=== PATIENT | male | born 1950 | race African-American/Black ===

== ENCOUNTER 2016-09-12 21:01 | Emergency (ER) | payer OTHER ==
--- NOTE | 2016-09-12 22:19 | ER Document Report ---
ED General - General Information source: Patient TRAVEL OUTSIDE OF THE [place] IN LAST 30 DAYS: No - HPI Patient complains to provider of: Hypertension Onset: This morning Onset/Duration: Gradual Associated symptoms: Headache, Leg swelling - Bilateral ankles and feet. denies : Chest pain, Shortness of breath <ZOHRA POP - Last Filed: 09/12/16 22:08> <GARETH REID - Last Filed: 09/13/16 03:04> - General Chief Complaint: High Blood Pressure Stated Complaint: BLOOD PRESSURE PROBLEM Time Seen by Provider: 09/12/16 22:07 Notes: Patient is a 65-year-old male, with history of hypertension, presenting to the emergency department concerned that his blood pressure is unstable. Patient reports having a mild headache, swelling in his ankles bilaterally, and " feeling uncomfortable". Patient denies any shortness of breath or chest pain. Patient states he is here visiting from [place], and drove 8 hours on , September 08, 2016. Patient reports having blood pressures of approximately 130/80 at baseline. Patient denies taking any diuretics, but he did recently have this CT of his chest to look for coronary artery calcifications. Patient states that he was told he has aortic regurgitation by his physician in [place] as well. (ZOHRA POP) - Related Data Allergies/Adverse Reactions: No Known Allergies Allergy (Unverified 09/12/16 21:16) Past Medical History - General Information source: Patient - Social History Smoking Status: Never Smoker Cigarette use (# per day): No Lives with: Spouse/Significant other Family History: Reviewed & Not Pertinent Patient has suicidal ideation: No Patient has homicidal ideation: No - Past Medical History Cardiac Medical History: Reports: Hx Hypertension, Other - Aortic regurgitation Renal/ Medical History: Denies: Hx Peritoneal Dialysis Past Surgical History: Reports: Other - Laparoscopic polyp removal 2014, prostatectomy 2001 <ZOHRA POP - Last Filed: 09/12/16 22:08> Review of Systems - Review of Systems Constitutional: See HPI, Other - Feels "uncomfortable" EENT: No symptoms reported Cardiovascular: No symptoms reported. denies: Chest pain Respiratory: No symptoms reported. denies: Short of breath Gastrointestinal: No symptoms reported Genitourinary: No symptoms reported Male Genitourinary: No symptoms reported Musculoskeletal: See HPI, Ankle swelling - Bilateral Skin: No symptoms reported Hematologic/Lymphatic: No symptoms reported Neurological/Psychological: See HPI, Headaches -: Yes All other systems reviewed and negative <ZOHRA POP - Last Filed: 09/12/16 22:08> Physical Exam - General General appearance: Appears well, Alert In distress: None - HEENT Head: Normocephalic, Atraumatic Eyes: Normal Pupils: PERRL -: right: Teardrop pupil Neck: No: Carotid bruit - Respiratory Respiratory status: No respiratory distress Chest status: Nontender Breath sounds: Normal Chest palpation: Normal - Cardiovascular Rhythm: Regular Heart sounds: S1 appreciated Murmur: No - Abdominal Inspection: Normal Tenderness: Nontender - Back Back: Normal, Nontender - Extremities General upper extremity: Normal inspection, Nontender General lower extremity: Edema - Trace peripheral edema bilaterally - Neurological Neuro grossly intact: Yes Cognition: Normal Orientation: AAOx4 [place] Coma Scale Eye Opening: Spontaneous [place] Coma Scale Verbal: Oriented [place]ri Coma Scale Motor: Obeys Commands [place] Coma Scale Total: 15 Speech: Normal - Psychological Associated symptoms: Normal affect, Normal mood - Skin Skin Temperature: Warm Skin Moisture: Dry Skin Color: Normal <ZOHRA POP - Last Filed: 09/12/16 22:08> Course <KIESHAZOHRA - Last Filed: 09/12/16 22:08> - Laboratory Result Diagrams: 09/12/16 22:50 09/12/16 22:50 - Diagnostic Test Radiology reviewed: Image reviewed, Reports reviewed - Chest x-ray is unremarkable. Head CT is unremarkable and shows only normal age-related calcifications in the extra-axial vessels. - EKG Interpretation by Me EKG shows normal: Sinus rhythm, [place], Intervals, QRS Complexes, ST-T Waves Rate: Normal - 66 Rhythm: NSR <GARETH REID - Last Filed: 09/13/16 03:04> - Re-evaluation Re-evalutation: 09/13/16 03:00 The patient states the pressure sensation in his head is improved some with his blood pressure coming down. His blood pressure is 155/96 with a pulse of 65 at this time. His CBC and Chem-12 are unremarkable. His cardiac enzymes are unremarkable. His EKG is completely normal. He will be given a dose of clonidine 0.1 mg, and go home and go to bed. He is to check his blood pressure in the mornings before he takes his blood pressure medications. He is planning on returning to [place] tomorrow but may stay another day depending on how he feels tomorrow. (GARETH REID) - Vital Signs Vital signs: Temp Pulse Resp BP Pulse Ox 98.1 F 77 16 160/99 H 95 09/12/16 21:13 09/12/16 21:13 09/12/16 21:13 09/12/16 21:13 09/12/16 21:13 - Laboratory Laboratory results interpreted by me: 09/12/16 22:50 Plt Count 149 L Discharge <ZOHRA POP - Last Filed: 09/12/16 22:08> <GARETH REID - Last Filed: 09/13/16 03:04> - Discharge Clinical Impression: Frontal headache High blood pressure Qualifiers: Hypertension type: essential hypertension Qualified Code(s): I10 - Essential ( primary) hypertension Condition: Stable Disposition: HOME, SELF-CARE Additional Instructions: Headache: The physician does not feel that the headache you are experiencing has a serious underlying cause. Sometimes, a headache is the first symptom of another developing illness, such as a viral infection. You have no evidence of stroke, bleeding, meningitis, or other serious cause of your headache. The treatment of headaches varies with the severity and cause of the pain. Not all headaches need pain shots. In fact, there is evidence that using narcotics for headaches may make them worse in the long run. The physician will determine the therapy that's in your best interest. If you develop a fever, if the headache is different from any you've previously experienced, or if the headache progressively worsens, then call your physician at once or go to the emergency room. CONTINUE YOUR REGULAR MEDICATIONS. DRINK PLENTY OF WATER. ELEVATE YOUR FEET AND WEAR THE SUPPORT HOSE. FOLLOW UP WITH YOUR DOCTOR WHEN YOU RETURN TO [place]. RETURN TO THE EMERGENCY ROOM IF ANY NEW OR WORSENING SYMPTOMS, OR IF YOUR HEADACHE AND ELEVATED BLOOD PRESSURE CONTINUES TOMORROW. Scribe Attestation: 09/13/16 03:04 I personally performed the services described in the documentation, reviewed and edited the documentation which was dictated to the scribe in my presence, and it accurately records my words and actions. (GARETH REID) Scribe Documentation - Scribe Written by Sameera:: Sameera Simth, 09/12/2016 2219 acting as scribe for :: Sienna <ZOHRA POP - Last Filed: 09/12/16 22:08>
[2016-09-12 23:10] LABS: ABSOLUTE EOSINOPHILS # (AUTO) 0.1 10^3/uL (0.0-0.6); ABSOLUTE LYMPHOCYTES (AUTO) 2.1 10^3/uL (0.5-4.7); ABSOLUTE MONOCYTES (AUTO) 0.5 10^3/uL (0.1-1.4); ABSOLUTE NEUT (AUTO) 4.1 10^3/uL (1.7-8.2); BASOPHILS % (AUTO) 0.5 % (0-2); EOSINOPHILS % (AUTO) 1.1 % (0-6); HEMOGLOBIN 14.2 g/dL (13.5-17.0); HGB HCT DIFFERENCE 0.6; MEAN CORPUSCULAR HEMOGLOBIN 29.2 pg (27.0-33.4); MEAN CORPUSCULAR HGB CONC 33.8 g/dL (32.0-36.0); MEAN CORPUSCULAR VOLUME 86 fl (80-97); MONOCYTES % (AUTO) 7.6 % (3-13); RED BLOOD COUNT 4.88 10^6/uL (4.35-5.55); RED CELL DISTRIBUTION WIDTH 13.2 % (11.5-14.0); SEGMENTED NEUTROPHILS % (AUTO) 59.8 % (42-78); WHITE BLOOD COUNT 6.9 10^3/uL (4.0-10.5)
[2016-09-12 23:21] LABS: ALANINE AMINOTRANSFERASE 27 U/L (21-72); ALBUMIN 4.1 g/dL (3.5-5.0); ALKALINE PHOSPHATASE 101 U/L (38-126); ANION GAP 12 (5-19); ASPARTATE AMINO TRANSFERASE 20 U/L (17-59); BILIRUBIN,DIRECT 0.2 mg/dL (0.0-0.4); BILIRUBIN,TOTAL 0.8 mg/dL (0.2-1.3); BLOOD UREA NITROGEN 14 mg/dL (7-20); CALCIUM 9.1 mg/dL (8.4-10.2); CARBON DIOXIDE 28 mmol/L (22-30); CHLORIDE 104 mmol/L (98-107); CREATINE KINASE 75 U/L (55-170); CREATININE RESULT 1.13 mg/dL (0.52-1.25); GLUCOSE 100 mg/dL (75-110); POTASSIUM 3.7 mmol/L (3.6-5.0); SODIUM 143.5 mmol/L (137-145); TOTAL PROTEIN 7.2 g/dL (6.3-8.2)
[2016-09-12 23:33] LABS: CREATINE KINASE MB 0.53 ng/mL (<4.55)
--- NOTE | 2016-09-12 23:33 | RADIOLOGY REPORT (SQ) ---
EXAM DESCRIPTION: CHEST SINGLE VIEW COMPLETED DATE/TIME: 09/12/2016 11:15 pm REASON FOR STUDY: elevated BP COMPARISON: None. EXAM PARAMETERS: NUMBER OF VIEWS: One view. TECHNIQUE: Single frontal radiographic view of the chest acquired. RADIATION DOSE: NA LIMITATIONS: None. FINDINGS: LUNGS AND PLEURA: No consolidation, masses or pneumothorax. No pleural effusion. MEDIASTINUM AND HILAR STRUCTURES: Contour appears age-appropriate. HEART AND VASCULAR STRUCTURES: Heart normal in size. Normal vasculature. BONES: No acute findings. HARDWARE: None in the chest. OTHER: No other significant finding. IMPRESSION: NO ACUTE RADIOGRAPHIC FINDING IN THE CHEST. TECHNICAL DOCUMENTATION: JOB ID: [id number]
[2016-09-12 23:38] LABS: TROPONIN I < 0.012 ng/mL
[2016-09-12] MEDS ORDERED: ACETAMINOPHEN 325 MG TABLET PO ONE (23:50)
[2016-09-13 00:11] LABS: APPEARANCE,URINE CLEAR; BILIRUBIN,URINE NEGATIVE (NEGATIVE); GLUCOSE, URINE NEGATIVE (NEGATIVE); KETONES,URINE NEGATIVE (NEGATIVE); LEUKOCYTE ESTERASE,URINE NEGATIVE (NEGATIVE); NITRITE,URINE NEGATIVE (NEGATIVE); PROTEIN,URINE NEGATIVE (NEGATIVE); URINE SPECIFIC GRAVITY 1.012; UROBILINOGEN,URINE NEGATIVE mg/dL (<2.0)
--- NOTE | 2016-09-13 01:51 | RADIOLOGY REPORT (SQ) ---
EXAM DESCRIPTION: CT HEAD WITHOUT COMPLETED DATE/TIME: 09/13/2016 1:39 am REASON FOR STUDY: headache COMPARISON: None. TECHNIQUE: Axial images acquired through the brain without intravenous contrast. Images reviewed wi th bone, brain and subdural windows. Images stored on PACS. All CT scanners at this facility use dose modulation, iterative reconstruction, and/or weight based d osing when appropriate to reduce radiation dose to as low as reasonably achievable (ALARA). [facility]: Dose Right [facility]: CareDose [facility]: Dose Right [facility]: Teradose 4D [facility]: [employer] RADIATION DOSE: 64.61 mGy. LIMITATIONS: None. FINDINGS: VENTRICLES: Normal size and contour. CEREBRUM: No masses. No hemorrhage. No midline shift. Normal laird/white matter differentiation. N o evidence for acute infarction. CEREBELLUM: No masses. No hemorrhage. No alteration of density. No evidence for acute infarction. EXTRAAXIAL SPACES: No fluid collections. No masses. Atherosclerosis. ORBITS AND GLOBE: No intra- or extraconal masses. Normal contour of globe without masses. CALVARIUM: No fracture. PARANASAL SINUSES: No fluid or mucosal thickening. SOFT TISSUES: No mass or hematoma. OTHER: No other significant finding. IMPRESSION: Atherosclerosis. Otherwise, no significant CT abnormality of the head. TECHNICAL DOCUMENTATION: JOB ID: [id number] Quality ID # [id number]: Final reports with documentation of one or more dose reduction techniques (e.g., Au tomated exposure control, adjustment of the mA and/or kV according to patient size, use of iterative reconstruction technique) 2010 [employer]- All Rights Reserved
[2016-09-13] MEDS ORDERED: CLONIDINE HCL 0.1 MG TABLET PO ONE (02:59)
[2016-09-13 03:22] VITALS: BP 168/90
--- NOTE | 2016-09-13 10:01 | EKG REPORT ---
SEVERITY:- NORMAL ECG - SINUS RHYTHM : Confirmed by: Magdy Ernandez 13-Sep-2016 10:00:52
== END 2016-09-13 03:22 | disposition home or self-care (01) ==
LOC: ER 21:01
DX: I10 Essential (primary) hypertension (principal); R51 Headache; M79.89 Other specified soft tissue disorders
CPT/HCPCS: 36415; 70450; 71010; 80053; 81001; 82550; 82553; 84484; 85025; 93005; 93010; 99284